=== PATIENT | female | born 1980 | race Caucasian/White ===

== ENCOUNTER 2016-06-04 06:02 | Inpatient (IN) | payer OTHER ==
[2016-06-04] MEDS ORDERED: LACTATED RINGERS 1,000 ML IV PRN ×2 (06:36→20:25)
[2016-06-04] MEDS ORDERED: FENTANYL CITRATE 50 MCG/ML SOL IV PRN (06:36)
[2016-06-04] MEDS ORDERED: MEPIVACAINE HCL 1% MPF 30 ML SOL INFIL PRN (06:36)
[2016-06-04] MEDS ORDERED: CARBOPROST 250 MCG/ML SOL IM PRN (06:36)
[2016-06-04] MEDS ORDERED: METHYLERGONOVINE MALEATE 0.2 MG/ML SOL IM PRN (06:36)
[2016-06-04] MEDS ORDERED: OXYTOCIN 10000 MU/ML SOL IM PRN (06:36)
[2016-06-04] MEDS ORDERED: NALBUPHINE HCL 20 MG/ML SOL IV PRN (07:11)
[2016-06-04] MEDS ORDERED: DIPHENHYDRAMINE 50 MG/ML SOL IV PRN (07:11)
[2016-06-04] MEDS ORDERED: EPHEDRINE SULFATE 50 MG/ML SOL IV PRN (07:11)
[2016-06-04] MEDS ORDERED: NALOXONE HYDROCHLORIDE 0.4 MG/ML SOL IV PRN ×2 (07:11→07:15)
[2016-06-04] MEDS ORDERED: DIPHENHYDRAMINE 25 MG CAP PO PRN (07:15)
[2016-06-04] MEDS ORDERED: MORPHINE SULFATE 0.5 MG/ML SOL ONE (07:15)
[2016-06-04] MEDS ORDERED: HYDROXYZINE HYDROCHLORIDE 25 MG/ML SOL IM PRN (07:15)
[2016-06-04] MEDS: LACTATED RINGERS 1,000 ML IV SCH ×5 (07:15→22:23)
[2016-06-04] MEDS ORDERED: DIPHENHYDRAMINE 50 MG/ML SOL IM PRN (07:15)
[2016-06-04] MEDS ORDERED: LACTATED RINGERS 1,000 ML IV SCH ×2 (07:15)
[2016-06-04 07:22] LABS: BASOPHILS % (AUTO) 1 % (0-3); EOSINOPHILS % (AUTO) 1 % (0-9); HEMATOCRIT 33 % (35-47); MEAN CORPUSCULAR HGB CONC 33.6 gm/dl (32.0-36.0); MONOCYTES % (AUTO) 7.6 % (0-12); NEUTROPHILS % (AUTO) 68.7 % (37-80)
[2016-06-04 07:25] LABS: MEAN CORPUSCULAR VOLUME 79 fL (81-99)
[2016-06-04] MEDS: SODIUM CHLORIDE 0.9% FLUSH 10 ML SOL IV SCH ×4 (07:45→21:01)
[2016-06-04] MEDS ORDERED: FLEET ENEMA PR PRN (08:53)
[2016-06-04] MEDS ORDERED: BISACODYL 10 MG SUP PR PRN (08:53)
[2016-06-04] MEDS ORDERED: TEMAZEPAM 15MG 15 MG CAP PO PRN (08:53)
[2016-06-04] MEDS ORDERED: METHYLERGONOVINE MALEATE 0.2 MG TAB PO PRN (08:53)
[2016-06-04] MEDS ORDERED: WITCH HAZEL 1 EA PAD TOP PRN (08:53)
[2016-06-04] MEDS ORDERED: APAP/HYDROCODONE 325/5 TAB PO PRN (08:53)
[2016-06-04] MEDS ORDERED: BENZOCAINE/MENTHOL 1 SPR TOP PRN (08:53)
[2016-06-04] MEDS ORDERED: ONDANSETRON HCL 4 MG/2 ML SOL IV PRN ×2 (11:28→20:23)
[2016-06-04] MEDS ORDERED: SODIUM CHLORIDE 0.9% 500 ML 500 ML IV ONE ×2 (11:29→13:13)
[2016-06-04] MEDS: SODIUM CHLORIDE 0.9% FLUSH 10 ML SOL IV PRN ×2 (11:30→13:18)
[2016-06-04] MEDS: DOCUSATE SODIUM 100 MG SGL PO SCH ×2 (12:05→21:01)
[2016-06-04] MEDS ORDERED: MECLIZINE HYDROCHLORIDE 12.5 MG TAB PO PRN (13:18)
[2016-06-04] MEDS ORDERED: MECLIZINE HYDROCHLORIDE 12.5 MG TAB ONE (17:49)
[2016-06-04 18:34] LABS: BASOPHILS % (AUTO) 0 % (0-3); EOSINOPHILS % (AUTO) 0 % (0-9); HEMATOCRIT 32 % (35-47); MEAN CORPUSCULAR VOLUME 80 fL (81-99); MONOCYTES % (AUTO) 7.1 % (0-12); NEUTROPHILS % (AUTO) 78.8 % (37-80)
[2016-06-04 18:48] LABS: ALBUMIN 2.1 gm/dl (3.4-5.0); CALCIUM 8.1 mg/dl (8.5-10.1); POTASSIUM 4.3 mMol/L (3.5-5.1)
[2016-06-05] MEDS: SODIUM CHLORIDE 0.9% FLUSH 10 ML SOL IV SCH ×2 (00:17→06:24)
[2016-06-05] MEDS: IBUPROFEN 600 MG TAB PO PRN ×2 (04:12→16:17)
[2016-06-05] MEDS: DOCUSATE SODIUM 100 MG SGL PO SCH ×2 (09:09→20:38)
[2016-06-05] MEDS: FERROUS SULFATE 325 MG TAB PO SCH (09:09)
[2016-06-05] MEDS: LACTATED RINGERS 1,000 ML IV SCH (10:34)
[2016-06-05 11:56] VITALS: RESP 16
[2016-06-05] MEDS: FOLIC ACID 1 MG TAB PO SCH (20:38)
[2016-06-05] MEDS: MULTIVITAMIN2 1 EA TAB PO SCH (20:38)
[2016-06-06 05:02] VITALS: O2SAT 97
[2016-06-06] MEDS: FOLIC ACID 1 MG TAB PO SCH (08:25)
[2016-06-06] MEDS: FERROUS SULFATE 325 MG TAB PO SCH (08:25)
[2016-06-06] MEDS: MULTIVITAMIN2 1 EA TAB PO SCH (08:25)
[2016-06-06] MEDS: DOCUSATE SODIUM 100 MG SGL PO SCH (08:25)
[2016-06-06 09:10] VITALS: BP 133/81; PULSE 77; TEMP 97.8
== END 2016-06-06 09:40 | disposition home or self-care (01) | DRG 775 ==
LOC: OB 06:02 → OBSVTOIN 06:02
PROVIDERS: ADMIT Family Medicine; ATTEND Family Medicine
PROC: 10D07Z6 Extraction of Products of Conception, Vacuum, Via Natural or Artificial Opening (ICD-10-PCS; principal; 2016-06-04)
PROC: 0KQM0ZZ Repair Perineum Muscle, Open Approach (ICD-10-PCS; 2016-06-04)
DX: O76 Abnormality in fetal heart rate and rhythm complicating labor and delivery (principal); O69.2XX0 Labor and delivery complicated by other cord entanglement, with compression, not applicable or unspecified; O70.1 Second degree perineal laceration during delivery; Z3A.39 39 weeks gestation of pregnancy; Z37.0 Single live birth
CPT/HCPCS: 59025; 80053; 85018; 85025; 94760; 94762; J0670; J2275; J2405; J2590; J3010

== ENCOUNTER 2018-02-25 11:31 | Day surgery (SDC) | payer OTHER ==
[~2018-02-25 11:31] MED LIST: PROPOFOL 500 MG/50 ML EMU IV ONE
[2018-02-25] MEDS ORDERED: FENTANYL 100MCG/2ML SOL ONE (12:25)
[2018-02-25] MEDS ORDERED: LIDOCAINE HCL 1% MPF 30 SOL ONE (12:26)
[2018-02-25 13:25] VITALS: BP 101/66; PULSE 68; RESP 20; TEMP 98.5; O2SAT 98
== END 2018-02-25 13:40 | disposition home or self-care (01) | DRG 392 ==
LOC: SURG 11:31
PROVIDERS: ATTEND Surgery
DX: R13.10 Dysphagia, unspecified (principal); Q39.9 Congenital malformation of esophagus, unspecified
CPT/HCPCS: 99001; J3010; J2001; J2704